=== PATIENT | male | born 1955 | race Caucasian/White ===

== ENCOUNTER 2025-02-22 06:27 | Day surgery (SDC) | payer OTHER, SELFPAY | END 2025-02-22 14:47 | disposition home or self-care (01) | LOC: GI 06:27 | PROVIDERS: ATTENDING PHYSICIAN Internal Medicine Gastroenterology | DX: Z12.11 Encounter for screening for malignant neoplasm of colon (principal); R19.5 Other fecal abnormalities; K64.8 Other hemorrhoids; D12.2 Benign neoplasm of ascending colon; D12.0 Benign neoplasm of cecum; D12.8 Benign neoplasm of rectum | CPT/HCPCS: 45385; 45380; 88305 ==